=== PATIENT | female | born 1950 | race Caucasian/White ===

== ENCOUNTER 2019-04-15 15:15 | Emergency (ER) | payer MEDICARE, OTHER ==
[2019-04-15] MEDS ORDERED: Sodium Chloride 0.9% 10 ML Syringe FLUSH PRN (15:38)
--- NOTE | 2019-04-15 16:07 | CT ---
Head CT Technique: Multiple axial sections through the brain were obtained. Intravenous contrast was not utilized. Comparison: Previous MRI brain study of 11/12/18. Findings: Ventricles along with basal cisterns and sulci over the convexities are within normal limits. Minimal areas of diminished density are scattered within the periventricular white matter compatible with small vessel ischemic demyelination change. No other abnormal parenchymal densities are seen. No evidence of intracranial hemorrhage. No midline shift or mass effect is seen. Bone window settings were reviewed which shows no acute calvarial abnormality. Minimal area of mucosal thickening is noted within the left side of the sphenoid sinus which is most likely incidental and stable from prior MRI. Visualized mastoid sinuses are clear. Impression: 1. Minimal senescent change as noted above. Nothing acute is appreciated on noncontrast head CT study. Diagnostic code #2
--- NOTE | 2019-04-15 17:20 | EDM.PDOC ---
ED HPI GENERAL MEDICAL PROBLEM - General Chief Complaint: Neuro Symptoms/Deficits Stated Complaint: NUMBNESS AND TINGLING IN CHIN,LIPS TONGUE &RT ARM Time Seen by Provider: 04/15/19 15:25 Source of Information: Reports: Patient, Family History Limitations: Reports: No Limitations - History of Present Illness INITIAL COMMENTS - FREE TEXT/NARRATIVE: The patient presents with numbness and tingling to the right side of her tongue , face and right arm. This started at 3pm tonight when she was at [employer]. She says her head also felt funny. That was better by the time she got here. She said this happen a few months ago and she had a complete work up done by Dr Good. She had an MRI that showed small vessel ischemic demyelination change. She also has hypertension, diabetes and hypercholesterolemia. She was on a statin and she got numbness form that so that was stopped. She has no weakness anywhere. She has no fever, chills, cough, congestion, runny nose, abdominal pain, nausea or vomiting. Onset: Sudden Duration: Minutes: Location: Reports: Face, Upper Extremity, Right Improves with: Reports: None Worsens with: Reports: None Associated Symptoms: Reports: No Other Symptoms - Related Data Allergies Allergy/AdvReac Type Severity Reaction Status Date / Time [id number] Reductase Allergy Numbness Verified 04/15/19 16:19 Inhibitor Sulfa (Sulfonamide Allergy Hives Verified 04/15/19 16:19 Antibiotics) Home Meds: Home Meds Blue-Green Algae [Spirulina] 2 cap PO BEDTIME 04/15/19 [History] Ezetimibe 10 mg PO BEDTIME 04/15/19 [History] Losartan [Cozaar] 50 mg PO BEDTIME 04/15/19 [History] [place]-3 Fatty Acids/Fish Oil [Fish Oil 1,200 mg Softgel] 1,200 mg PO BEDTIME [History] Ubidecarenone [Co Q-10] 100 mg PO BEDTIME 04/15/19 [History] Vitamin B Complex 1 tab PO BEDTIME 04/15/19 [History] Wheat Dextrin/L.acid/Aspartame [Fiber with Probiotic Powder] 1 tab PO BEDTIME [History] metFORMIN [Glucophage XR] 500 mg PO BEDTIME 04/15/19 [History] Past Medical History Cardiovascular History: Reports: High Cholesterol, Hypertension Respiratory History: Reports: Other (See Below) Other Respiratory History: broncioltitis WET ROASTER History: Reports: Endometriosis, Other (See Below) Other WET ROASTER History: laproscopy - Infectious Disease History Infectious Disease History: Reports: Other (See Below) Other Infectious Disease History: malaria-pt lived in [place] for 5 years Social & Family History - Tobacco Use Smoking Status *Q: Never Smoker - Caffeine Use Caffeine Use: Reports: Coffee, Soda - Recreational Drug Use Recreational Drug Use: No ED ROS GENERAL - Review of Systems Review Of Systems: See Below Constitutional: Reports: No Symptoms HEENT: Reports: No Symptoms Respiratory: Reports: No Symptoms Cardiovascular: Reports: No Symptoms Endocrine: Reports: No Symptoms GI/Abdominal: Reports: No Symptoms : Reports: No Symptoms Musculoskeletal: Reports: No Symptoms Skin: Reports: No Symptoms Neurological: Reports: Numbness (Right face, tongue and arm). Denies: Headache ED EXAM, NEURO - Physical Exam Exam: See Below Exam Limited By: No Limitations General Appearance: Alert, No Apparent Distress Ears: Normal External Exam Nose: Normal Inspection Head Exam: Atraumatic, Normocephalic Neck: Normal Inspection Respiratory/Chest: No Respiratory Distress, Lungs Clear, Normal Breath Sounds Cardiovascular: Regular Rate, Rhythm, No Edema, No Murmur GI/Abdominal: Soft, Non-Tender, No Organomegaly, No Mass Neurological: Alert, No Motor/Sensory Deficits, Oriented x 3 Course - Vital Signs Last Recorded V/S: Last Vital Signs Temp 97.2 F 04/15/19 15:36 Pulse 97 04/15/19 15:36 Resp 20 04/15/19 15:36 BP 157/80 H 04/15/19 15:36 Pulse Ox 96 04/15/19 15:36 - Orders/Labs/Meds Orders: Active Orders 24 hr Category Date Time Status Blood Glucose Check, Bedside [RC] ONETIME Care 04/15/19 15:44 Active Cardiac Monitoring [RC] . DIRECTED Care 04/15/19 15:38 Active EKG Documentation Completion [RC] STAT Care 04/15/19 15:38 Active Peripheral IV Care [RC] . DIRECTED Care 04/15/19 15:39 Active Sodium Chloride 0.9% [Saline Flush] Med 04/15/19 15:38 Active 10 ml FLUSH ASDIRECTED PRN Peripheral IV Insertion Adult [OM.PC] Stat Oth 04/15/19 15:38 Ordered Medication Orders Sodium Chloride (Saline Flush) 10 ml FLUSH ASDIRECTED PRN PRN Reason: Keep Vein Open Last Admin: 04/15/19 15:37 Dose: 10 ml Labs: Laboratory Tests 04/15/19 04/15/19 04/15/19 Range/Units 15:37 15:37 15:37 WBC 6.74 (3.98-10.04) K/mm3 RBC 4.70 (3.98-5.22) M/mm3 Hgb 13.8 (11.2-15.7) gm/L Hct 41.5 (34.1-44.9) % MCV 88.3 (79.4-94.8) fl MCH 29.4 (25.6-32.2) pg MCHC 33.3 (32.2-35.5) g/dl RDW Std Deviation 45.2 (36.4-46.3) fL Plt Count 217 (182-369) K/mm3 MPV 9.7 (9.4-12.3) fl Neut % (Auto) 44.0 (34.0-71.1) % Lymph % (Auto) 42.9 (19.3-51.7) % Mcdowell % (Auto) 9.8 (4.7-12.5) % Eos % (Auto) 2.8 (0.7-5.8) Baso % (Auto) 0.4 (0.1-1.2) % Neut # (Auto) 2.96 (1.56-6.13) K/mm3 Lymph # (Auto) 2.89 (1.18-3.74) K/mm3 Mcdowell # (Auto) 0.66 H (0.24-0.36) K/mm3 Eos # (Auto) 0.19 (0.04-0.36) K/mm3 Baso # (Auto) 0.03 (0.01-0.08) K/mm3 PT 10.5 (9.7-12.0) SECONDS INR 0.96 APTT 25 (22-31) SECONDS Sodium 142 (136-145) mEq/L Potassium 3.9 (3.5-5.1) mEq/L Chloride 105 (98-107) mEq/L Carbon Dioxide 25 (21-32) mEq/L Anion Gap 15.9 H (5-15) BUN 19 H (7-18) mg/dL Creatinine 0.9 (0.55-1.02) mg/dL Est Cr Clr Drug Dosing 47.32 mL/min Estimated GFR (MDRD) > 60 (>60) mL/min BUN/Creatinine Ratio 21.1 H (14-18) Glucose 123 H (80-115) mg/dL POC Glucose (80-115) mg/dL Calcium 9.7 (8.5-10.1) mg/dL Total Bilirubin 0.3 (0.2-1.0) mg/dL AST 51 H (15-37) U/L ALT 87 H (14-59) U/L Alkaline Phosphatase 57 (46-116) U/L Troponin I < 0.017 (0.00-0.056) ng/mL Total Protein 7.8 (6.4-8.2) g/dl Albumin 4.1 (3.4-5.0) g/dl Globulin 3.7 gm/dL Albumin/Globulin Ratio 1.1 (1-2) 04/15/19 Range/Units 15:38 WBC (3.98-10.04) K/mm3 RBC (3.98-5.22) M/mm3 Hgb (11.2-15.7) gm/L Hct (34.1-44.9) % MCV (79.4-94.8) fl MCH (25.6-32.2) pg MCHC (32.2-35.5) g/dl RDW Std Deviation (36.4-46.3) fL Plt Count (182-369) K/mm3 MPV (9.4-12.3) fl Neut % (Auto) (34.0-71.1) % Lymph % (Auto) (19.3-51.7) % Mcdowell % (Auto) (4.7-12.5) % Eos % (Auto) (0.7-5.8) Baso % (Auto) (0.1-1.2) % Neut # (Auto) (1.56-6.13) K/mm3 Lymph # (Auto) (1.18-3.74) K/mm3 Mcdowell # (Auto) (0.24-0.36) K/mm3 Eos # (Auto) (0.04-0.36) K/mm3 Baso # (Auto) (0.01-0.08) K/mm3 PT (9.7-12.0) SECONDS INR APTT (22-31) SECONDS Sodium (136-145) mEq/L Potassium (3.5-5.1) mEq/L Chloride (98-107) mEq/L Carbon Dioxide (21-32) mEq/L Anion Gap (5-15) BUN (7-18) mg/dL Creatinine (0.55-1.02) mg/dL Est Cr Clr Drug Dosing mL/min Estimated GFR (MDRD) (>60) mL/min BUN/Creatinine Ratio (14-18) Glucose (80-115) mg/dL POC Glucose 119 H (80-115) mg/dL Calcium (8.5-10.1) mg/dL Total Bilirubin (0.2-1.0) mg/dL AST (15-37) U/L ALT (14-59) U/L Alkaline Phosphatase (46-116) U/L Troponin I (0.00-0.056) ng/mL Total Protein (6.4-8.2) g/dl Albumin (3.4-5.0) g/dl Globulin gm/dL Albumin/Globulin Ratio (1-2) Meds: Medications Generic Name Dose Route Start Last Admin Trade Name Freq PRN Reason Stop Dose Admin Sodium Chloride 10 ml 04/15/19 15:38 04/15/19 15:37 Saline Flush FLUSH 10 ml ASDIRECTED PRN Administration Keep Vein Open - Re-Assessments/Exams Free Text/Narrative Re-Assessment/Exam: 04/15/19 17:40 A stroke alert was called and I came in to the room right away. Her last time known well was 3pm today. I ordered an IV saline lock, EKG, labs and a CT of her head. Her CT shows minimal senescent change. Nothing acute is appreciated on noncontrast head CT study. Her CBC looks good. Her PT and PTT look good. Her anion gap is elevated at 15.9. Her glucose is 123. Her AST is elevated at 51. Her ALT is elevated at 87. Her troponin is negative. She has resolved. I feel she will need to go to [facility] in [place] for a TIA. I called [facility] and talked with the neurologist electrification adviser and he felt this was small vessel ischemic change and he wanted her on an aspirin. I will give her a dose here. 04/15/19 17:44 I will have her follow up with Dr Good and have possible her carotids checked out. Departure - Departure Time of Disposition: 17:45 Disposition: Home, Self-Care 01 Condition: Good Clinical Impression: TIA (transient ischemic attack) - Discharge Information *PRESCRIPTION DRUG MONITORING PROGRAM REVIEWED*: No *COPY OF PRESCRIPTION DRUG MONITORING REPORT IN PATIENT KENZIE: No Referrals: Katy Rain MD [Primary Care Provider] - Forms: ED Department Discharge Additional Instructions: Take 2 baby aspirin daily. Follow up with Dr Good within a week. Please return if you are worse. - My Orders Last 24 Hours: My Active Orders 04/15/19 15:38 Cardiac Monitoring [RC] . DIRECTED EKG Documentation Completion [RC] STAT Sodium Chloride 0.9% [Saline Flush] 10 ml FLUSH ASDIRECTED PRN Peripheral IV Insertion Adult [OM.PC] Stat 04/15/19 15:39 Peripheral IV Care [RC] . DIRECTED 04/15/19 15:44 Blood Glucose Check, Bedside [RC] ONETIME - Assessment/Plan Last 24 Hours: My Active Orders 04/15/19 15:38 Cardiac Monitoring [RC] . DIRECTED EKG Documentation Completion [RC] STAT Sodium Chloride 0.9% [Saline Flush] 10 ml FLUSH ASDIRECTED PRN Peripheral IV Insertion Adult [OM.PC] Stat 04/15/19 15:39 Peripheral IV Care [RC] . DIRECTED 04/15/19 15:44 Blood Glucose Check, Bedside [RC] ONETIME
[2019-04-15] MEDS ORDERED: Aspirin 81 MG Tab.Chew PO ONE (17:43)
== END 2019-04-15 18:04 | disposition home or self-care (01) ==
LOC: JD.ED 15:15
DX: G45.9 Transient cerebral ischemic attack, unspecified (principal); I10 Essential (primary) hypertension; E78.00 Pure hypercholesterolemia, unspecified; Z88.2 Allergy status to sulfonamides; Z79.84 Long term (current) use of oral hypoglycemic drugs; Z79.899 Other long term (current) drug therapy
CPT/HCPCS: 36415; 70450; 80053; 82962; 84484; 85025; 85610; 85730; 93005; 99284; A9270

== ENCOUNTER 2019-04-26 08:53 | Emergency (ER) | payer MEDICARE, OTHER ==
[2019-04-26] MEDS ORDERED: Sodium Chloride 0.9% 10 ML Syringe FLUSH PRN (09:04)
[2019-04-26] MEDS ORDERED: Sodium Chloride 0.9% 1,000 ML IV SCH (09:15)
--- NOTE | 2019-04-26 09:53 | CT ---
MR angiogram of brain Technique: Multiple axial sections through the brain were obtained. Intravenous contrast was utilized. Comparison: No prior vascular imaging of the brain is available. Findings: Basilar artery is patent. Posterior cerebral arteries appear within normal limits. Carotid siphon is within normal limits. Middle cerebral arteries and anterior cerebral arteries appear within normal limits. No focal area of stenosis or occlusion is seen. No gross aneurysm is identified. Impression: 1. No abnormality is identified on CT angiogram of the brain. Diagnostic code #1
--- NOTE | 2019-04-26 09:53 | CT ---
Head CT Technique: Multiple axial sections through the brain were obtained. Intravenous contrast was not utilized. Comparison: Prior head CT exam of 04/15/19. Findings: Ventricles along with basal cisterns and sulci over the convexities are within normal limits for the patient's age. Minimal diminished density is noted within portions of the periventricular white matter which most likely represents small vessel ischemic demyelination change which appears stable. No other abnormal parenchymal densities are seen. No evidence of intracranial hemorrhage. No midline shift or mass effect is seen. Atherosclerotic calcification is seen within the vertebral vessels and carotid siphon. Bone window settings were reviewed which show the mastoid sinuses to appear clear. Mild mucosal thickening seen with the left sphenoid sinus. No additional finding is seen within the visualized sinuses. No acute calvarial abnormality is seen. Impression: 1. Slight senescent change as noted above. 2. Minimal mucosal thickening within the left side of the sphenoid sinus believed to be incidental. 3. No acute intracranial abnormality is seen. Given the patient's symptoms, MRI could now be considered to further evaluate. Diagnostic code #2
[2019-04-26] MEDS ORDERED: Sodium Chloride 0.9% 10 ML Syringe FLUSH ONE (09:55)
[2019-04-26] MEDS ORDERED: Iopamidol 755 Mg/ML 100 ML Bottle IVPUSH ONE (09:55)
[2019-04-26] MEDS ORDERED: Sodium Chloride 0.9% 100 ML IV SCH (10:00)
--- NOTE | 2019-04-26 10:08 | CT ---
CT angiogram of neck Technique: Multiple axial sections through the neck were obtained. Intravenous contrast was obtained during the arterial phase. Multiple reconstructed images were obtained. Comparison: No prior carotid imaging is available. Findings: Common carotid arteries are patent on both sides. No focal stenosis is seen within the carotid bulbs on both sides. Internal carotid artery show proximal tortuosity. No focal stenosis is seen within the internal carotid arteries on both sides. Left vertebral artery is small compared to the right side. This most likely represents incidental dominant right vertebral artery. No focal stenosis is otherwise seen. Several nodules are seen within the thyroid gland. Impression: 1. No focal stenosis seen within the carotid arteries or vertebral arteries. Dominant right vertebral artery is noted which is felt to be incidental. 2. Thyroid nodules, nonemergent thyroid ultrasound could be considered. Diagnostic code #3
--- NOTE | 2019-04-26 12:05 | MR ---
MRI brain Technique: T1 sagittal; T2, T2 FLAIR, T1 and diffusion axial; T1 and T2 gradient echo axial images were obtained. Comparison: Prior head CT study performed earlier on the same day (9:08 AM). Previous MRI brain dated 11/12/18. Findings: Ventricles along with basal cisterns and sulci over the convexities are within normal limits for the patient's age. Normal signal void is seen within the major cerebral arteries within the skull base. Multiple areas of increased signal are noted within the periventricular and subcortical white matter which are compatible with small vessel ischemic demyelination change or and appear fairly stable from prior exam. No other abnormal areas of signal are seen within the brain parenchyma. No midline shift or mass effect is seen. No acute diffusion abnormalities are seen. Impression: 1. Areas of increased signal within the periventricular and subcortical white matter compatible with small vessel ischemic demyelination change. These findings are fairly stable from previous exam. 2. No acute diffusion abnormalities are seen. Diagnostic code #2
--- NOTE | 2019-04-26 14:40 | EDM.PDOC ---
ED HPI GENERAL MEDICAL PROBLEM - General Chief Complaint: Neuro Symptoms/Deficits Stated Complaint: TIA. HAD ONE 2 FRIDAYS AGO WELL Time Seen by Provider: 04/26/19 09:00 Source of Information: Reports: Patient History Limitations: Reports: No Limitations - History of Present Illness INITIAL COMMENTS - FREE TEXT/NARRATIVE: The patient presents with right face and arm numbness. This started this morning at 6am. She had this happen about 4 times now. She was seen here about 2 weeks ago for the same and she had a work up and she was put on aspirin. She had an echo done and an US of her carotid arteries. The US of the carotids did show some stenosis according to the patient. She is scheduled to get a CT of her neck this week. She has no headache, fever, chills, cough, chest pain or shortness of breath. She has no weakness anywhere. Onset: Sudden Duration: Hour(s): (6am) Location: Reports: Face, Upper Extremity, Left Severity: Mild Improves with: Reports: None Worsens with: Reports: None Associated Symptoms: Reports: No Other Symptoms - Related Data Allergies Allergy/AdvReac Type Severity Reaction Status Date / Time Ajlolft-[id number]-[id number] Reductase Allergy Numbness Verified 04/26/19 11:18 Inhibitor Sulfa (Sulfonamide Allergy Hives Verified 04/26/19 11:18 Antibiotics) Home Meds: Home Meds Blue-Green Algae [Spirulina] 2 cap PO BEDTIME 04/15/19 [History] Ezetimibe 10 mg PO BEDTIME 04/15/19 [History] Losartan [Cozaar] 50 mg PO BEDTIME 04/15/19 [History] [place]-3 Fatty Acids/Fish Oil [Fish Oil 1,200 mg Softgel] 1,200 mg PO BEDTIME [History] Ubidecarenone [Co Q-10] 100 mg PO BEDTIME 04/15/19 [History] Vitamin B Complex 1 tab PO BEDTIME 04/15/19 [History] Wheat Dextrin/L.acid/Aspartame [Fiber with Probiotic Powder] 1 tab PO BEDTIME [History] metFORMIN [Glucophage XR] 500 mg PO BEDTIME 04/15/19 [History] Clopidogrel Bisulfate [Plavix] 75 mg PO DAILY #30 tablet 04/26/19 [Rx] Past Medical History Cardiovascular History: Reports: High Cholesterol, Hypertension Respiratory History: Reports: Other (See Below) Other Respiratory History: broncioltitis 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: Reports: Endometriosis, Other (See Below) Other 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: laproscopy - Infectious Disease History Infectious Disease History: Reports: Other (See Below) Other Infectious Disease History: malaria-pt lived in [place] for 5 years Social & Family History - Family History Family Medical History: Noncontributory - Tobacco Use Smoking Status *Q: Never Smoker - Caffeine Use Caffeine Use: Reports: Coffee, Soda - Recreational Drug Use Recreational Drug Use: No ED ROS GENERAL - Review of Systems Review Of Systems: See Below Constitutional: Reports: No Symptoms HEENT: Reports: No Symptoms Respiratory: Reports: No Symptoms Cardiovascular: Reports: No Symptoms Endocrine: Reports: No Symptoms GI/Abdominal: Reports: No Symptoms : Reports: No Symptoms Musculoskeletal: Reports: No Symptoms Skin: Reports: No Symptoms Neurological: Reports: Numbness (Right face and right arm). Denies: Headache ED EXAM, NEURO - Physical Exam Exam: See Below Exam Limited By: No Limitations General Appearance: Alert, No Apparent Distress Ears: Normal External Exam Nose: Normal Inspection Head Exam: Atraumatic, Normocephalic Neck: Normal Inspection Respiratory/Chest: No Respiratory Distress, Lungs Clear, Normal Breath Sounds Cardiovascular: Regular Rate, Rhythm, No Edema, No Murmur GI/Abdominal: Soft, Non-Tender, No Organomegaly, No Mass Neurological: Alert, No Motor/Sensory Deficits, Oriented x 3 EKG INTERPRETATION EKG Date: 04/26/19 Time: 09:05 Rhythm: NSR Rate (Beats/Min): 88 Reading: Normal P-Wave: Present QRS: Normal ST-T: Normal QT: Normal Course - Orders/Labs/Meds Orders: Active Orders 24 hr Category Date Time Status Cardiac Monitoring [RC] . DIRECTED Care 04/26/19 09:06 Active EKG Documentation Completion [RC] STAT Care 04/26/19 09:07 Active Peripheral IV Care [RC] . DIRECTED Care 04/26/19 09:07 Active Sodium Chloride 0.9% [Normal Saline] 1,000 ml Med 04/26/19 09:15 Active IV ASDIRECTED Sodium Chloride 0.9% [Normal Saline] 100 ml Med 04/26/19 10:00 Active IV ASDIRECTED Sodium Chloride 0.9% [Saline Flush] Med 04/26/19 09:04 Active 10 ml FLUSH ASDIRECTED PRN Peripheral IV Insertion Adult [OM.PC] Stat Oth 04/26/19 09:04 Ordered Medication Orders Sodium Chloride (Normal Saline) 1,000 mls @ 125 mls/hr IV ASDIRECTED ADIN Last Admin: 04/26/19 09:53 Dose: 125 mls/hr Sodium Chloride (Normal Saline) 100 mls @ 60 mls/hr IV ASDIRECTED ADIN Last Admin: 04/26/19 09:59 Dose: 60 mls/hr Sodium Chloride (Saline Flush) 10 ml FLUSH ASDIRECTED PRN PRN Reason: Keep Vein Open Last Admin: 04/26/19 09:08 Dose: 10 ml Labs: Laboratory Tests 04/26/19 04/26/19 04/26/19 Range/Units 09:05 09:08 09:08 WBC 5.35 (3.98-10.04) K/mm3 RBC 4.87 (3.98-5.22) M/mm3 Hgb 14.3 (11.2-15.7) gm/L Hct 42.6 (34.1-44.9) % MCV 87.5 (79.4-94.8) fl MCH 29.4 (25.6-32.2) pg MCHC 33.6 (32.2-35.5) g/dl RDW Std Deviation 45.0 (36.4-46.3) fL Plt Count 210 (182-369) K/mm3 MPV 9.7 (9.4-12.3) fl Neut % (Auto) 47.9 (34.0-71.1) % Lymph % (Auto) 37.8 (19.3-51.7) % [place] % (Auto) 10.3 (4.7-12.5) % Eos % (Auto) 3.2 (0.7-5.8) Baso % (Auto) 0.4 (0.1-1.2) % Neut # (Auto) 2.57 (1.56-6.13) K/mm3 Lymph # (Auto) 2.02 (1.18-3.74) K/mm3 [place] # (Auto) 0.55 H (0.24-0.36) K/mm3 Eos # (Auto) 0.17 (0.04-0.36) K/mm3 Baso # (Auto) 0.02 (0.01-0.08) K/mm3 PT 10.4 (9.7-12.0) SECONDS INR 0.95 APTT 24 (22-31) SECONDS Sodium (136-145) mEq/L Potassium (3.5-5.1) mEq/L Chloride (98-107) mEq/L Carbon Dioxide (21-32) mEq/L Anion Gap (5-15) BUN (7-18) mg/dL Creatinine (0.55-1.02) mg/dL Est Cr Clr Drug Dosing Estimated GFR (MDRD) (>60) mL/min BUN/Creatinine Ratio (14-18) Glucose (80-115) mg/dL POC Glucose 129 H (80-115) mg/dL Calcium (8.5-10.1) mg/dL Total Bilirubin (0.2-1.0) mg/dL AST (15-37) U/L ALT (14-59) U/L Alkaline Phosphatase (46-116) U/L Troponin I (0.00-0.056) ng/mL Total Protein (6.4-8.2) g/dl Albumin (3.4-5.0) g/dl Globulin gm/dL Albumin/Globulin Ratio (1-2) 04/26/19 Range/Units 09:08 WBC (3.98-10.04) K/mm3 RBC (3.98-5.22) M/mm3 Hgb (11.2-15.7) gm/L Hct (34.1-44.9) % MCV (79.4-94.8) fl MCH (25.6-32.2) pg MCHC (32.2-35.5) g/dl RDW Std Deviation (36.4-46.3) fL Plt Count (182-369) K/mm3 MPV (9.4-12.3) fl Neut % (Auto) (34.0-71.1) % Lymph % (Auto) (19.3-51.7) % [place] % (Auto) (4.7-12.5) % Eos % (Auto) (0.7-5.8) Baso % (Auto) (0.1-1.2) % Neut # (Auto) (1.56-6.13) K/mm3 Lymph # (Auto) (1.18-3.74) K/mm3 [place] # (Auto) (0.24-0.36) K/mm3 Eos # (Auto) (0.04-0.36) K/mm3 Baso # (Auto) (0.01-0.08) K/mm3 PT (9.7-12.0) SECONDS INR APTT (22-31) SECONDS Sodium 138 (136-145) mEq/L Potassium 4.3 (3.5-5.1) mEq/L Chloride 102 (98-107) mEq/L Carbon Dioxide 24 (21-32) mEq/L Anion Gap 16.3 H (5-15) BUN 19 H (7-18) mg/dL Creatinine 0.9 (0.55-1.02) mg/dL Est Cr Clr Drug Dosing TNP Estimated GFR (MDRD) > 60 (>60) mL/min BUN/Creatinine Ratio 21.1 H (14-18) Glucose 142 H (80-115) mg/dL POC Glucose (80-115) mg/dL Calcium 9.9 (8.5-10.1) mg/dL Total Bilirubin 0.3 (0.2-1.0) mg/dL AST 36 (15-37) U/L ALT 59 (14-59) U/L Alkaline Phosphatase 61 (46-116) U/L Troponin I < 0.017 (0.00-0.056) ng/mL Total Protein 7.9 (6.4-8.2) g/dl Albumin 4.2 (3.4-5.0) g/dl Globulin 3.7 gm/dL Albumin/Globulin Ratio 1.1 (1-2) Meds: Medications Generic Name Dose Route Start Last Admin Trade Name Freq PRN Reason Stop Dose Admin Sodium Chloride 1,000 mls @ 125 mls/hr 04/26/19 09:15 04/26/19 09:53 Normal Saline IV 125 mls/hr ASDIRECTED ADIN Administration Sodium Chloride 100 mls @ 60 mls/hr 04/26/19 10:00 04/26/19 09:59 Normal Saline IV 60 mls/hr ASDIRECTED ADIN Administration Sodium Chloride 10 ml 04/26/19 09:04 04/26/19 09:08 Saline Flush FLUSH 10 ml ASDIRECTED PRN Administration Keep Vein Open Discontinued Medications Generic Name Dose Route Start Last Admin Trade Name Carmen PRN Reason Stop Dose Admin Iopamidol 100 ml 04/26/19 09:55 04/26/19 09:59 Isovue-370 (76%) IVPUSH 04/26/19 09:56 100 ml ONETIME ONE Administration Sodium Chloride 10 ml 04/26/19 09:55 04/26/19 09:59 Saline Flush FLUSH 04/26/19 09:56 10 ml ONETIME ONE Administration - Re-Assessments/Exams Free Text/Narrative Re-Assessment/Exam: 04/26/19 14:48 A stroke alert was called and I went right into the room. The last time known well was 6am. I ordered an IV saline lock, EKG, CTA of her head and neck and labs. Her CBC and CMP look good. Her troponin looks good. Her CT shows slight senescent change. Minimal mucosal thickening within the left side of the sphenoid sinus believed to be incidental. No acute intracranial abnormality is seen. The CT angio of the brain shows no abnormality is identified on CT angiogram of the brain. The CT angiogram of the neck shows no focal stenosis seen within the carotid arteries or vertebral arteries. Dominant right vertebral artery is noted which is felt to be incidental. Thyroid nodules, nonemergent thyroid US could be considered. I ordered an MRI of her brain and it shows areas of increased signal within the periventricular and subcortical white matter compatible with small vessel ischemic demyelination change. These findings are fairly stable from previous exam. No acute diffusion abnormalities are seen. I called [facility] and talked with the neurologist medical records receptionist Dr Etienne and he recommended double therapy with aspirin and plavix for 3 weeks and then just plavix. I will discharge her and have her follow up with her doctor. Departure - Departure Time of Disposition: 15:00 Disposition: Home, Self-Care 01 Condition: Good Clinical Impression: TIA (transient ischemic attack) - Discharge Information *PRESCRIPTION DRUG MONITORING PROGRAM REVIEWED*: No *COPY OF PRESCRIPTION DRUG MONITORING REPORT IN PATIENT KENZIE: No Prescriptions: Clopidogrel Bisulfate [Plavix] 75 mg PO DAILY #30 tablet Referrals: Katy Rain MD [Primary Care Provider] - 1 Week Additional Instructions: Take plavix daily and aspirin 81mg daily for 3 weeks and then stop the aspirin and take only plavix. Follow up with your doctor within a week. Please return if you are worse. - My Orders Last 24 Hours: My Active Orders 04/26/19 09:04 Sodium Chloride 0.9% [Saline Flush] 10 ml FLUSH ASDIRECTED PRN Peripheral IV Insertion Adult [OM.PC] Stat 04/26/19 09:06 Cardiac Monitoring [RC] . DIRECTED 04/26/19 09:07 EKG Documentation Completion [RC] STAT Peripheral IV Care [RC] . DIRECTED 04/26/19 09:15 Sodium Chloride 0.9% [Normal Saline] 1,000 ml IV ASDIRECTED 04/26/19 10:00 Sodium Chloride 0.9% [Normal Saline] 100 ml IV ASDIRECTED - Assessment/Plan Last 24 Hours: My Active Orders 04/26/19 09:04 Sodium Chloride 0.9% [Saline Flush] 10 ml FLUSH ASDIRECTED PRN Peripheral IV Insertion Adult [OM.PC] Stat 04/26/19 09:06 Cardiac Monitoring [RC] . DIRECTED 04/26/19 09:07 EKG Documentation Completion [RC] STAT Peripheral IV Care [RC] . DIRECTED 04/26/19 09:15 Sodium Chloride 0.9% [Normal Saline] 1,000 ml IV ASDIRECTED 04/26/19 10:00 Sodium Chloride 0.9% [Normal Saline] 100 ml IV ASDIRECTED
== END 2019-04-26 15:15 | disposition home or self-care (01) ==
LOC: JD.ED 08:53
DX: G45.9 Transient cerebral ischemic attack, unspecified (principal); I10 Essential (primary) hypertension; E78.00 Pure hypercholesterolemia, unspecified; Z88.2 Allergy status to sulfonamides; Z88.8 Allergy status to other drugs, medicaments and biological substances; Z79.82 Long term (current) use of aspirin; Z79.899 Other long term (current) drug therapy
CPT/HCPCS: 36415; 70450; 70496; 70498; 70551; 80053; 82962; 84484; 85025; 85610; 85730; 93005; 96360; 96361; 99284; J7030; J7040; Q9967

== ENCOUNTER 2020-05-18 10:53 | Emergency (ER) | payer MEDICARE, OTHER ==
--- NOTE | 2020-05-18 12:08 | EDM.PDOC ---
ED HPI GENERAL MEDICAL PROBLEM - General Chief Complaint: Cardiovascular Problem Stated Complaint: HIGH BP Time Seen by Provider: 05/18/20 12:02 Source of Information: Reports: Patient, RN Notes Reviewed History Limitations: Reports: No Limitations - History of Present Illness INITIAL COMMENTS - FREE TEXT/NARRATIVE: Patient is a 70-year-old female who presents to the ED for the evaluation of her elevated blood pressure. Patient notes that she has been having some lower left-sided back pain that radiates into her hip and down her leg, for the past few days, she is taking 1/4 tablet of her OxyContin at home for this, she states this gets her enough pain management, so she can be functional throughout the day. She went to the walk-in clinic for evaluation and management of her back pain, and they found her blood pressure to be elevated at over 200 systolically. They sent her to the ER for further evaluation. Patient thought that her back pain was due to sciatica, she did go to the chiropractor and he thought maybe she had a bulging disc causing issues as well. She states that the whole outside of her left leg seems numb. She does also note a history of kidney stones, and states that she did have symptoms kind of like this when she had her kidney stones few years ago. Patient is denying any blurred vision or double vision, headache, she is not having any chest pain, shortness of breath, no nausea vomiting or diarrhea. Patient states that she does take losartan 100 mg at night, and metoprolol 50 mg at night, along with a statin. She has a history of a TIA, but she was evaluated for this, had meds adjusted has not had any issues since. She also notes that she had a loop recorder placed in the spring 2019, for her ongoing A. fib. She is anticoagulated for this. Patient notes that her urine was a little cloudy this morning, but she is not having any dysuria, frequency or urgency, since she is not noticed any blood in her urine. On recheck of her blood pressure while in the room, this was 186/84. Treatments WILLOWER: Reports: Acetaminophen Other Treatments WILLOWER: Oxycontin (1/2 tablet) unknown mg. - Related Data Allergies Allergy/AdvReac Type Severity Reaction Status Date / Time Sulfa (Sulfonamide Allergy Hives Verified 05/18/20 11:34 Antibiotics) Home Meds: Home Meds Blue-Green Algae [Spirulina] 2 cap PO BEDTIME 04/15/19 [History] Losartan [Cozaar] 100 mg PO BEDTIME 04/15/19 [History] metFORMIN [Glucophage XR] 500 mg PO BEDTIME 04/15/19 [History] Aspirin [Halfprin] 162 mg PO DAILY 04/26/19 [History] Biotin 5,000 mcg SL DAILY 05/18/20 [History] Dalia Root [Dalia] 250 mg PO BID 05/18/20 [History] Meloxicam 15 mg PO DAILY 05/18/20 [History] Metoprolol Succinate [Toprol XL 50mg] 50 mg PO DAILY 05/18/20 [History] Rosuvastatin [Crestor] 20 mg PO DAILY 05/18/20 [History] predniSONE 20 mg PO ASDIRECTED #15 tab 05/18/20 [Rx] Past Medical History Cardiovascular History: Reports: High Cholesterol, Hypertension, Other (See Below) Other Cardiovascular History: Loop recorder placed in chest. 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: Reports: Endometriosis, Other (See Below) Other COMMERCIAL STRIPPER History: laproscopy Musculoskeletal History: Reports: Back Pain, Chronic Neurological History: Reports: TIA - Infectious Disease History Infectious Disease History: Reports: Other (See Below) Other Infectious Disease History: malaria-pt lived in [place] for 5 years Social & Family History - Family History Family Medical History: Noncontributory - Tobacco Use Smoking Status *Q: Never Smoker Second Hand Smoke Exposure: No - Caffeine Use Caffeine Use: Reports: Coffee - Recreational Drug Use Recreational Drug Use: No ED ROS GENERAL - Review of Systems Review Of Systems: Comprehensive ROS is negative, except as noted in HPI. ED EXAM, GENERAL - Physical Exam Exam: See Below Exam Limited By: No Limitations General Appearance: Alert, WD/WN, No Apparent Distress Throat/Mouth: Normal Inspection, Normal Lips, Normal Teeth, Normal Gums, Normal Oropharynx, Normal Voice, No Airway Compromise Head: Atraumatic Respiratory/Chest: No Respiratory Distress, Lungs Clear, Normal Breath Sounds, No Accessory Muscle Use, Chest Non-Tender Cardiovascular: Normal Peripheral Pulses, Regular Rate, Rhythm, No Murmur Peripheral Pulses: 2+: Radial (L), Radial (R) GI/Abdominal: Normal Bowel Sounds, Soft, Non-Tender, No Distention, No Mass Back Exam: Decreased Range of Motion (d/t pain) Extremities: Normal Inspection, Normal Capillary Refill Neurological: Alert, Oriented, Normal Cognition, No Motor/Sensory Deficits Psychiatric: Normal Affect, Normal Mood Skin Exam: Warm, Dry, Intact, Normal Color, No Rash Course - Vital Signs Last Recorded V/S: Last Vital Signs Temp 97.5 F 05/18/20 11:27 Pulse 78 05/18/20 11:27 Resp 20 05/18/20 11:27 BP 196/102 H 05/18/20 11:27 Pulse Ox 96 05/18/20 11:27 - Orders/Labs/Meds Orders: Active Orders 24 hr Category Date Time Status Peripheral IV Care [RC] . DIRECTED Care 05/18/20 12:10 Active Peripheral IV Insertion Adult [OM.PC] Routine Oth 05/18/20 12:08 Ordered Labs: Laboratory Tests 05/18/20 05/18/20 05/18/20 Range/Units 01:00 12:45 13:00 WBC 5.79 (3.98-10.04) K/mm3 RBC 4.85 (3.98-5.22) M/mm3 Hgb 14.2 (11.2-15.7) gm/dl Hct 43.6 (34.1-44.9) % MCV 89.9 (79.4-94.8) fl MCH 29.3 (25.6-32.2) pg MCHC 32.6 (32.2-35.5) g/dl RDW Std Deviation 46.8 H (36.4-46.3) fL Plt Count 218 (182-369) K/mm3 MPV 9.8 (9.4-12.3) fl Neut % (Auto) 52.6 (34.0-71.1) % Lymph % (Auto) 34.4 (19.3-51.7) % [place] % (Auto) 10.4 (4.7-12.5) % Eos % (Auto) 2.1 (0.7-5.8) Baso % (Auto) 0.3 (0.1-1.2) % Neut # (Auto) 3.05 (1.56-6.13) K/mm3 Lymph # (Auto) 1.99 (1.18-3.74) K/mm3 [place] # (Auto) 0.6 H (0.24-0.36) K/mm3 Eos # (Auto) 0.12 (0.04-0.36) K/mm3 Baso # (Auto) 0.02 (0.01-0.08) K/mm3 Sodium 138 (136-145) mEq/L Potassium 4.0 (3.5-5.1) mEq/L Chloride 101 (98-107) mEq/L Carbon Dioxide 30 (21-32) mEq/L Anion Gap 11.0 (5-15) BUN 15 (7-18) mg/dL Creatinine 1.0 (0.55-1.02) mg/dL Est Cr Clr Drug Dosing TNP Estimated GFR (MDRD) 55 (>60) mL/min BUN/Creatinine Ratio 15.0 (14-18) Glucose 119 H (80-115) mg/dL Calcium 10.0 (8.5-10.1) mg/dL Total Bilirubin 0.4 (0.2-1.0) mg/dL AST 26 (15-37) U/L ALT 38 (14-59) U/L Alkaline Phosphatase 56 (46-116) U/L Total Protein 7.6 (6.4-8.2) g/dl Albumin 4.1 (3.4-5.0) g/dl Globulin 3.5 gm/dL Albumin/Globulin Ratio 1.2 (1-2) Urine Color Light yellow (Yellow) Urine Appearance Clear (Clear) Urine pH 6.0 (5.0-8.0) Ur Specific [place] 1.020 (1.005-1.030) Urine Protein Negative (Negative) Urine Glucose (UA) Negative (Negative) Urine Ketones Negative (Negative) Urine Occult Blood Negative (Negative) Urine Nitrite Negative (Negative) Urine Bilirubin Negative (Negative) Urine Urobilinogen 0.2 (0.2-1.0) Ur Leukocyte Esterase Negative (Negative) Urine RBC Not seen (0-5) /hpf Urine WBC 5-10 H (0-5) /hpf Ur Squamous Epith Cells 0-5 (0-5) /hpf Urine Bacteria Few (FEW) /hpf Urine Mucus Not seen (FEW) /hpf Meds: Medications Discontinued Medications Generic Name Dose Route Start Last Admin Trade Name Freq PRN Reason Stop Dose Admin Hydromorphone HCl Confirm 05/18/20 12:15 Dilaudid Administered 05/18/20 12:16 Dose 0.5 mg .ROUTE .STK-MED ONE - Re-Assessments/Exams Free Text/Narrative Re-Assessment/Exam: 05/18/20 12:08 Patient presents to the ED for the evaluation of her elevated blood pressure and back pain. Ordered IV to be placed, along with some basic labs and 0.5 mg of Dilaudid for initial management. Patient is requesting that we do not give her any medication for her blood pressure, she is not having any headache or neurological symptoms, this is fine with me at this time, we will continue to monitor and give meds as necessary. 05/18/20 14:54 Patient's laboratory evaluation has resulted, and is unremarkable. Urinalysis demonstrates 5-10 white blood cells, and 0-5 squamous epithelial cells, leukocyte Estrace negative and nitrite negative. The patient's blood pressure has come down to 168 systolically while sitting in the ER. We will do lumbar x- rays at this time to evaluate for the possibility of bulging disc versus compression fractures in nature. Patient is okay with this plan at this time. No meds to be given for her blood pressure as it seems to be coming down nicely when she is relaxing. I do believe it was elevated due to the pain she was having. Pending lumbar x-rays, we will come up with a good pain management plan and have her follow-up with her regular care provider. Departure - Departure Time of Disposition: 15:45 Disposition: Home, Self-Care 01 Condition: Good Clinical Impression: Low back pain radiating down leg Prescriptions: predniSONE 20 mg PO ASDIRECTED #15 tab Referrals: Katy Rain MD [Primary Care Provider] - Forms: ED Department Discharge Additional Instructions: You were seen in the ER today for your elevated blood pressure, and low back pain. Continue to take all your blood pressure medications as previously directed by your regular providers, to help manage your blood pressure. It is likely that your blood pressure was elevated due to the pain you are having in your back. Laboratory evaluation demonstrated no focal abnormalities. Your lumbar x-rays showed degenerative change in multiple areas within your back. Please continue to take the oxycodone prescription that you have at home as you have been taking it for pain relief. You were given a prescription for prednisone, 1 tab 2 times a day x5 days, and then 1 tab once a day x5 days. Do not take your meloxicam while taking the prednisone. An outpatient MRI order was written on your behalf, our department will call you to schedule you for this appointment. If you do not hear from them by Thursday or Thursday of next week, please call our facility, and ask for radiology. [phone]. You will need to schedule an appointment with your regular provider, Dr. Good after the MRI has been taken, recommend you try to wait about a week after you have had the MRI taken, so that results can be forwarded to your provider. Please return to the ER at any time if symptoms change or worsen. Sepsis Event Note (ED) - Evaluation Sepsis Screening Result: No Definite Risk - Focused Exam Vital Signs: Vital Signs Temp Pulse Resp BP Pulse Ox 05/18/20 11:27 97.5 F 78 20 196/102 H 96 - My Orders Last 24 Hours: My Active Orders 05/18/20 12:08 Peripheral IV Insertion Adult [OM.PC] Routine 05/18/20 12:10 Peripheral IV Care [RC] . DIRECTED - Assessment/Plan Last 24 Hours: My Active Orders 05/18/20 12:08 Peripheral IV Insertion Adult [OM.PC] Routine 05/18/20 12:10 Peripheral IV Care [RC] . DIRECTED
[2020-05-18] MEDS ORDERED: HYDROmorphone 0.5 MG/0.5 ML Syringe ONE (12:15)
--- NOTE | 2020-05-18 15:24 | CR ---
Lumbar spine: AP and lateral views lumbar spine were obtained. Comparison: No previous lumbar spine imaging is available. Severe disc space narrowing at L5-S1. Mild posterior disc space narrowing at L4-L5. Mild anterior spondylolisthesis noted at L4-L5 measuring about 4 mm. This is most likely due to degenerative apophyseal change. There is fairly severe posterior disc space narrowing at L1-L2, L2-3 and L3-L4. Vertebral body heights are maintained. Mild scattered endplate osteophytes are seen. Pedicles are intact. Visualized transverse and spinous processes are intact. Impression: 1. Degenerative change as noted above. Diagnostic code #2 Study was dictated in MDT
== END 2020-05-18 16:23 | disposition home or self-care (01) ==
LOC: JD.ED 10:53
DX: M54.5 Low back pain (principal); E78.00 Pure hypercholesterolemia, unspecified; I48.91 Unspecified atrial fibrillation; I10 Essential (primary) hypertension; Z88.2 Allergy status to sulfonamides; Z79.82 Long term (current) use of aspirin; Z86.73 Personal history of transient ischemic attack (TIA), and cerebral infarction without residual deficits; Z79.84 Long term (current) use of oral hypoglycemic drugs; Z79.899 Other long term (current) drug therapy
CPT/HCPCS: 36415; 72100; 80053; 81001; 85025; 96374; 99283; J1170